=== PATIENT | male | born 1965 | race Two or more races ===

== ENCOUNTER 2022-02-12 12:52 | Emergency (ER) | payer OTHER ==
[~2022-02-12] VITALS: Ht 185.4 cm; Wt 104.3 kg
--- NOTE | 2022-02-12 14:06 | NUR ---
PT SEEN AND EXAMINED BY .
[2022-02-12] MEDS ORDERED: KETOROLAC TROMETHAMINE INJ 60 MG/2 ML VIAL IM ONE ×2 (14:30)
[2022-02-12] MEDS ORDERED: ONDANSETRON 4 MG TAB.RAPDIS SL ONE (14:30)
[2022-02-12] MEDS ORDERED: ONDANSETRON 4 MG TAB.RAPDIS ONE (14:30)
--- NOTE | 2022-02-12 14:35 | NUR ---
COVID AND FLU SPECIMEN COLLECTED AND SENT TO LAB.
[2022-02-12] MEDS ORDERED: BENZ-13 PO (16:14)
[2022-02-12] MEDS ORDERED: GUAI1TBM19 PO (16:14)
[2022-02-12] MEDS ORDERED: IBUP-1957 PO (16:14)
[2022-02-12] MEDS ORDERED: PSEU120T83 PO (16:14)
[2022-02-12 16:19] VITALS: BP 106/72
--- NOTE | 2022-02-12 16:19 | NUR ---
Patient discharged to home in stable condition. Written and verbal after care instructions given. Patient verbalizes understanding of instruction.
== END 2022-02-12 16:20 | disposition home or self-care (01) ==
LOC: ER 12:59
DX: J06.9 Acute upper respiratory infection, unspecified (principal); Z20.822 Contact with and (suspected) exposure to COVID-19
CPT/HCPCS: 71045; 87426; 87804; 96372; 99284; C9803; J1885; Q0162